=== PATIENT | male | born 1980 | race Hispanic/Latino ===

== ENCOUNTER 2017-05-07 07:42 | Emergency (ER) | payer SELFPAY | END 2017-05-07 08:25 | disposition home or self-care (01) | LOC: ERS 07:42 | DX: K64.4 Residual hemorrhoidal skin tags (principal) | CPT/HCPCS: 99282 ==

== ENCOUNTER 2019-05-18 09:07 | Emergency (ER) | payer SELFPAY | END 2019-05-18 11:17 | disposition home or self-care (01) | LOC: ERS 09:07 | DX: L25.9 Unspecified contact dermatitis, unspecified cause (principal) | CPT/HCPCS: 99282 ==